=== PATIENT | female | born 1950 | race Caucasian/White ===

== ENCOUNTER 2020-04-21 02:44 | Emergency (ER) | payer OTHER ==
[~2020-04-21] VITALS: Ht 167.6 cm; Wt 100.0 kg
[2020-04-21] MEDS ORDERED: SODIUM CHLORIDE 0.9% 1,000 ML IV ONE (03:15)
[2020-04-21 03:18] LABS: BASOPHILS % 1.1 % (0.0-2.0); EOSINOPHILS % 0.7 % (0.0-5.0); HEMATOCRIT. 46.9 % (36.0-48.0); HEMOGLOBIN. 16.2 g/dL (12.0-16.0); LYMPHOCYTES % 21.7 % (20.0-50.0); MEAN CORPUSCULAR HEMOGLOBIN 33.3 pg (28.0-32.0); MEAN CORPUSCULAR VOLUME 96.6 fL (81.0-99.0); MONOCYTES % 7.4 % (2.0-8.0); NEUTROPHILS % 69.1 % (40.0-76.0); PLATELET 219 x1000/uL (130-400); RED BLOOD CELL COUNT 4.86 mill/uL (4.2-5.4)
[2020-04-21 03:55] LABS: CHLORIDE 101 mEq/L (98-107)
[2020-04-21 04:02] LABS: BETA HYDROXYBUTYRATE 1.5 mMol/L (0.0-0.3)
[2020-04-21 06:16] VITALS: BP 149/72
== END 2020-04-21 06:24 | disposition home or self-care (01) ==
LOC: ER 02:44
DX: E11.65 Type 2 diabetes mellitus with hyperglycemia (principal); T67.5XXA Heat exhaustion, unspecified, initial encounter; E86.0 Dehydration; X58.XXXA Exposure to other specified factors, initial encounter; Y93.89 Activity, other specified; Y92.89 Other specified places as the place of occurrence of the external cause
CPT/HCPCS: 36415; 71045; 80053; 82010; 82962; 83605; 83880; 84484; 85025; 93005; 96360; 99285; J7030

== ENCOUNTER 2023-09-21 08:24 | Emergency (ER) | payer OTHER ==
[~2023-09-21] VITALS: Ht 149.9 cm; Wt 78.4 kg
[2023-09-21 08:34] VITALS: O2SAT 97
[2023-09-21 09:26] LABS: CLARITY URINE CLOUDY (CLEAR); COLOR URINE YELLOW (YELLOW); GLUCOSE URINE 3+ (NEGATIVE); KETONES URINE 2+ (NEGATIVE); LEUKOCYTE ESTERASE URINE 1+ (NEGATIVE); NITRITE URINE NEGATIVE (NEGATIVE); OCCULT BLOOD URINE NEGATIVE (NEGATIVE); PH URINE 5.5 (4.5-8.0); PROTEIN URINE 1+ (NEGATIVE); SPECIFIC GRAVITY URINE 1.033 (1.005-1.030)
[2023-09-21 09:49] LABS: BASOPHILS % 0.4 % (0.0-2.0); EOSINOPHILS % 0.2 % (0.0-5.0); HEMATOCRIT. 43.6 % (36.0-48.0); HEMOGLOBIN. 14.5 g/dL (12.0-16.0); LYMPHOCYTES % 12.3 % (20.0-50.0); MEAN CORPUSCULAR HEMOGLOBIN 32.5 pg (28.0-32.0); MEAN CORPUSCULAR HGB CONC 33.4 g/dL (31.0-37.0); MEAN CORPUSCULAR VOLUME 97.5 fL (81.0-99.0); MEAN PLATELET VOLUME 9.4 fl (7.4-10.4); MONOCYTES % 3.4 % (2.0-8.0); NEUTROPHILS % 83.7 % (40.0-76.0); PLATELET 225 x1000/uL (130-400); RED BLOOD CELL COUNT 4.47 mill/uL (4.2-5.4); RED CELL DISTRIBUTION WIDTH 12.7 % (11.6-14.6); WHITE BLOOD COUNT 6.6 x1000/uL (4.5-11.0)
[2023-09-21 09:59] LABS: ALANINE AMINOTRANSFERASE 18 IU/L (10-49); ALBUMIN 4.1 g/dL (3.2-4.8); ASPARTATE AMINOTRANSFERASE 16 IU/L (<34); BILIRUBIN TOTAL 0.6 mg/dL (0.1-1.0); CALCIUM 9.2 mg/dL (8.7-10.4); CARBON DIOXIDE 26 mEq/L (21-32); CHLORIDE 103 mEq/L (98-107); CREATININE 0.6 mg/dL (0.6-1.0); GLUCOSE 250 mg/dL (70-105); PROTEIN TOTAL 7.4 g/dL (6.0-8.3); SODIUM 137 mEq/L (136-145); UREA NITROGEN BLOOD 12 mg/dL (9-23)
[2023-09-21 10:09] LABS: TROPONIN I HIGH SENSITIVITY < 4 ng/L (3.0-34)
[2023-09-21 11:54] LABS: MUCUS URINE 2+ /lpf (< = 2+); SQUAMOUS EPITHELIAL CELL URINE 2+ /lpf (RARE/1+); WBC URINE TNTC /hpf (0-2)
[2023-09-21 11:55] LABS: BACTERIA URINE 3+; RBC URINE 0-2 /hpf (0-2)
[2023-09-21] MEDS ORDERED: CEFP200T13 MT (12:35)
[2023-09-21 14:32] VITALS: BP 149/65; PULSE 70; RESP 18; TEMP 98.4
== END 2023-09-21 14:36 | disposition home or self-care (01) ==
LOC: ER 08:24
DX: N39.0 Urinary tract infection, site not specified (principal); E78.00 Pure hypercholesterolemia, unspecified; Z98.51 Tubal ligation status; Z98.890 Other specified postprocedural states
CPT/HCPCS: 36415; 71045; 80053; 81003; 84484; 85025; 87186; 93005; 99285